=== PATIENT | male | born 1960 | race Two or more races ===

== ENCOUNTER 2020-07-09 22:44 | Emergency (ER) | payer MEDICAID, OTHER ==
[~2020-07-09] VITALS: Ht 165.1 cm; Wt 77.0 kg
--- NOTE | 2020-07-09 23:10 | NUR ---
CC OF NEW ONSET CP FOR 3 HRS AND ABD PAIN X 3 DAYS THAT MOVES TO BACK. CP IS NON RADIATING. PT DENIES N/V/D. STATES THE CP CAME ON WHILE AT WORK TODAY AT APPROX 1900. FAMILY MEMBER AT BEDSIDE
[2020-07-09] MEDS ORDERED: SODIUM CHLORIDE FLUSH 10ML SYR IVF ONE (23:30)
[2020-07-09 23:34] LABS: BASOPHILS % (AUTO) 0 % (0-1); EOSINOPHILS % (AUTO) 1 % (1-7); LYMPHOCYTES % (AUTO) 26 % (22-44); MEAN CORPUSCULAR HGB CONC 34.6 g/dL (33.2-36.2); MEAN PLATELET VOLUME 7.9 fL (7.4-10.4); MONOCYTES % (AUTO) 8 % (2-9); NEUTROPHILS % (AUTO) 65 % (42-75); PLATELET COUNT 169 x10^3/uL (130-400); RED BLOOD COUNT 4.84 x10^6/uL (4.38-5.82); RED CELL DISTRIBUTION WIDTH 13.1 % (9.4-14.8)
[2020-07-09 23:40] LABS: ALANINE AMINOTRANSFERASE 26 U/L (12-78); ALBUMIN 3.9 g/dL (3.4-5.0); ANION GAP 9 mmol/L (5-15); CALCIUM 8.6 mg/dL (8.5-10.1); CHLORIDE 107 mmol/L (98-107); CREATININE 0.95 mg/dL (0.7-1.3)
[2020-07-09 23:44] LABS: ALKALINE PHOSPHATASE 70 U/L (45-117); BILIRUBIN,TOTAL 0.4 mg/dL (0.2-1.0); TOTAL PROTEIN 7.3 g/dL (6.4-8.2); TROPONIN I < 0.015 ng/mL (0.000-0.045)
[2020-07-09 23:49] LABS: MD NO
--- NOTE | 2020-07-09 23:56 | NUR ---
PT TO IMAGING
[2020-07-10] MEDS ORDERED: SODIUM CHLORIDE 0.9% 1,000ML IVBOLUS ONE
[2020-07-10] MEDS ORDERED: OMNIPAQUE 350 MG/ML, 100ML BOTTLE ONE (00:02)
[2020-07-10] MEDS ORDERED: FAMOTIDINE 20 MG TABLET PO ONE (01:00)
[2020-07-10] MEDS ORDERED: MAALOX/HYOSCYAMINE/LIDOCAINE 45 ML BTL PO ONE (01:00)
--- NOTE | 2020-07-10 01:00 | NUR ---
pt resting in bed, no needs at this time. resp even and unlabored
[2020-07-10] MEDS ORDERED: FAMOTIDINE 20 MG TABLET ONE (01:11)
[2020-07-10] MEDS ORDERED: MAALOX/HYOSCYAMINE/LIDOCAINE 45 ML BTL ONE (01:11)
[2020-07-10 01:23] LABS: MICROSCOPIC NOT IND
--- NOTE | 2020-07-10 01:50 | NUR ---
pt states he feels the same after medications. erp aware
--- NOTE | 2020-07-10 02:42 | NUR ---
pt resting in [facility] watching tv, pending lab draw at 0400. pt aware of poc.
--- NOTE | 2020-07-10 03:03 | NUR ---
report from Edita SCHULER
--- NOTE | 2020-07-10 03:04 | NUR ---
report given to delfino omer
--- NOTE | 2020-07-10 03:05 | NUR ---
PT SITTING UPRIGHT ON GURNEY, PT REPOSITIONED PER REQUEST. PT REPORTS "I FEEL THE SAME THE PAIN IS STILL THERE". PT DENIES ANY ADDITIONAL NEEDS AT THIS TIME. CALL [facility] WITHIN REACH
[2020-07-10 04:02] VITALS: BP 151/58
--- NOTE | 2020-07-10 04:02 | NUR ---
PT SITTING SUPINE ON GURNEY. PT REPORTS "I FEEL THE SAME THE PAIN IS STILL THERE". PT DENIES ANY ADDITIONAL NEEDS AT THIS TIME. CALL [facility] WITHIN REACH
[2020-07-10 04:08] LABS: TROPONIN I < 0.015 ng/mL (0.000-0.045)
--- NOTE | 2020-07-10 04:29 | NUR ---
Patient given discharge instructions and they have confirmed that they understand the instructions. Patient ambulatory with steady gait.
== END 2020-07-10 04:38 | disposition home or self-care (01) ==
LOC: ED 23:14
DX: R07.2 Precordial pain (principal); R10.13 Epigastric pain; M54.5 Low back pain; R94.31 Abnormal electrocardiogram [ECG] [EKG]; F17.210 Nicotine dependence, cigarettes, uncomplicated; I10 Essential (primary) hypertension; E11.9 Type 2 diabetes mellitus without complications; E78.5 Hyperlipidemia, unspecified; K21.9 Gastro-esophageal reflux disease without esophagitis
CPT/HCPCS: 36415; 71045; 74177; 80053; 80320; 81003; 83690; 84484; 85025; 93005; 96360; 99285; 99406; J7030; Q9967; G0480